=== PATIENT | male | born 1980 | race Caucasian/White ===

== ENCOUNTER 2021-09-13 01:25 | Day surgery (SDC) | payer OTHER, SELFPAY ==
[2021-09-04 13:35] VITALS: BMI 22.5
[2021-09-13 08:33] VITALS: BP 129/78; PULSE 49; RESP 18; TEMP 36; O2SAT 99; BMI 21.9
[2021-09-13] MEDS: LACTATED RINGERS 1,000 ML 150 ML IV CONT (08:40)
--- NOTE | 2021-09-13 08:44 | P.CONGI_ITS ---
Assessment and Plan Assessment and plan (1) Diverticulitis: Code(s): K57.92 - Diverticulitis of intestine, part unspecified, without perforation or abscess without bleeding Status: Acute Assessment and Plan: Diverticulitis has resolved. Plan is for patient remain on a high-fiber diet. Colonoscopy to assess for healing and exclude other pathology will be performed today. (2) LGI bleed: Code(s): K92.2 - Gastrointestinal hemorrhage, unspecified Status: Acute Assessment and Plan: Patient had episode of lower GI bleeding. This is subsequently resolved. Patient now on a high-fiber diet. Colonoscopy to evaluate this is to be performed today. GI Consult Note Consult date/time: 09/13/21 08:44 HPI: Nixon Campos is a 41 year old male Presents for colonoscopy. Patient had episode of lower GI bleeding associated with abdominal pain 2 months ago. It was felt to represent diverticulitis. He recovered after antibiotics. He has had no additional bleeding. He states abdominal pain is resolved. He presents today for follow-up colonoscopy to assess for healing and exclude other pathology. Patient's family history is noncontributory. Review of Systems Review of Systems: All systems reviewed & are unremarkable except as noted in HPI and below PMFSH Social History Social History (Updated 07/17/21 @ 10:43 by Nessa Packer MA) Smoking status: Never smoker Second hand tobacco smoke exposure: No Alcohol intake: current Drinks per week: 12 Alcohol use details: social Substance use: never Substance use type: former substance user Living arrangements: with family Gender identity (if verbalized by the patient): Male Spiritual care concerns: No Meds Home Medications and Allergies Home Medications Medication Instructions Recorded Confirmed Type No Home Medications 07/17/21 09/04/21 History Allergies Allergy/AdvReac Type Severity Reaction Status Date / Time No Known Allergies Allergy Mild Verified 09/13/21 08:32 Vital Signs Vital Signs - 24 hr 09/13/21 08:33 Temperature 96.8 F L Pulse Rate 49 L Respiratory Rate 18 Blood Pressure 129/78 Pulse Oximetry 99 Exam Narrative: Physical exam reveals patient to be alert. Vital signs stable. HEENT exam is unremarkable. Patient is anicteric. Lungs are clear to auscultation and percussion. Heart is without murmur or extra sounds. A bdominal exam bowel sounds are present soft nontender with no organomegaly. Digital external rectal exam is normal.
--- NOTE | 2021-09-13 08:56 | WPDANESEPPF ---
Anes - Initial Pre Proc Eval Procedure: Operation Date: 09/13/21 09:30 Proposed Procedures p Colonoscopy - Mau Vera MD Date/Time: 09/13/21 08:56 Surgeon: Mau Vera MD Pre Op Diagnosis: lower GI bleed, diverticulitis Patient Data Age: 41 Gender: M Height: 1.88 m Weight: 77.3 kg Last Vital Signs Temp 36.0 C L 09/13/21 08:33 Pulse 49 L 09/13/21 08:33 Resp 18 09/13/21 08:33 BP 129/78 09/13/21 08:33 Pulse Ox 99 09/13/21 08:33 Allergies Allergy/AdvReac Type Severity Reaction Status Date / Time No Known Allergies Allergy Mild Verified 09/13/21 08:32 Home Medications Medication Instructions Recorded Confirmed Type No Home Medications 07/17/21 09/04/21 History Patient hx anesthesia problems: none Family hx anesthesia problems: none Results Review: All pre-operative results and documents have been reviewed as part of the pre-operative evaluation. [facility] Past Medical History Medical History (Updated 09/13/21 @ 08:59 by Homer Mead MD) History of varicocele Social History Social History Smoking status: Never smoker Second hand tobacco smoke exposure: No Alcohol intake: current Drinks per week: 12 Alcohol use details: social Substance use: never Substance use type: former substance user Living arrangements: with family Gender identity (if verbalized by the patient): Male Spiritual care concerns: No Anes - Eval Final PreProcedure Day of Procedure 09/13/21 08:56 Patient weight: normal Heart: regular rate and rhythm Lungs: clear to auscultation Airway: Mallampati scale class II Neurological: alert and oriented Last oral intake: >/= 8 hours ASA classification: I Emergent: no Anesthetic plan: proceed Anesthesia type and monitoring: general GIVS and standard monitoring Results Review: All pre-operative results and documents have been reviewed as part of the pre-operative evaluation. Informed Consent: The patient's anesthetic plan and its attendant risks and benefits were discussed with the patient/family/POA. Questions were solicited and answers provided to the satisfaction of the patient/family/POA.
[2021-09-13] MEDS: SIMETHICONE ORAL SUSPENSION 20 MG/0.3 ML 30 ML BOTTLE 0.6 ML IRRIGATION (09:23)
[2021-09-13 09:30] VITALS: BP 110/61; PULSE 68; RESP 17; O2SAT 93
[2021-09-13 09:40] VITALS: BP 103/62; PULSE 53; RESP 18; O2SAT 96
[2021-09-13 09:50] VITALS: BP 126/68; PULSE 62; RESP 20; O2SAT 96
== END 2021-09-13 09:57 | disposition home or self-care (01) ==
PROVIDERS: PCP Family Medicine Adolescent Medicine; Visit Provider Internal Medicine Gastroenterology
PROC: 0DJD8ZZ Inspection of Lower Intestinal Tract, Via Natural or Artificial Opening Endoscopic (ICD-10-PCS; CPT 45378; principal; 2021-09-13 09:30)
DX: K92.1 Melena (principal); K64.8 Other hemorrhoids; K57.30 Diverticulosis of large intestine without perforation or abscess without bleeding; Z87.19 Personal history of other diseases of the digestive system
CPT/HCPCS: 45378; J2704; J7120

== ENCOUNTER 2023-08-07 09:35 | Emergency (ER) | payer OTHER, SELFPAY ==
[2023-08-07 09:47] VITALS: BP 121/68; PULSE 60; RESP 16; TEMP 36.6; O2SAT 97
--- NOTE | 2023-08-07 09:57 | ED.LOWEXIN ---
HPI - Extremity Injury (Lower) General Chief Complaint: Skin/Abscess/Foreign Body Stated Complaint: Left Leg Injury Time Seen by Provider: 08/07/23 09:51 Source: patient and RN notes reviewed Mode of arrival: ambulatory Limitations: no limitations History of Present Illness HPI Narrative: Patient presents today with a laceration to his left buttock. He fell approximately 30 minutes prior to arrival, onto an anchor bolt on the ground at work, cutting his pants and lacerating his skin. He is not up-to-date on his tetanus vaccine. He declines vaccine at this time. He did go home and shower prior to arrival. Related Data Home Medications Medication Instructions Recorded Confirmed escitalopram oxalate 10 mg tablet 10 mg PO DAILY 04/22/23 08/07/23 (Lexapro) multivitamin 1 tablet PO DAILY 04/22/23 08/07/23 Allergies Allergy/AdvReac Type Severity Reaction Status Date / Time No Known Allergies Allergy Mild Verified 08/07/23 09:43 Review of Systems Review of Systems: CONSTITUTIONAL: Denies body aches, fever, chills, or sweats. EYES: Denies visual changes, redness, or discharge. ENT: Denies rhinorrhea, congestion, sore throat, or otalgia. CARDIOVASCULAR: Denies chest pain, palpitations, or edema. RESPIRATORY: Denies cough or dyspnea. GASTROINTESTINAL: Denies abdominal pain, nausea, vomiting, or diarrhea. GENITOURINARY: Denies dysuria or hematuria. SKIN: + left buttock laceration MUSCULOSKELETAL: Denies back pain, joint pain, or myalgia. NEUROLOGIC: Denies headache, numbness, tingling, or weakness. PSYCH: Denies depression or anxiety. [facility] Past Medical History Medical History Anxiety BMI 21.0-21.9, adult Depression Diverticulitis Encounter to establish care History of varicocele Hx of diverticulitis of colon LGI bleed Screening for prostate cancer Family History Family History Grandparent Diabetes mellitus Social History Social History Smoking status: Never smoker Second hand tobacco smoke exposure: No Alcohol intake: current Drinks per week: 12 Alcohol use details: social Substance use: never Substance use type: former substance user Current Housing: Decline to Answer Concerned About Future Housing: Decline to Answer Difficulty Paying Gas/Electric Bills: Decline to Answer Difficulty Paying for Meds: Decline to Answer Currently Unemployed: Decline to Answer Education: Decline to Answer Difficulty w/ Childcare or Family Care: Decline to Answer Living arrangements: with family Occupation/Education: occupation Gender identity (if verbalized by the patient): Male Spiritual care concerns: No Comments At time of signature, I have reviewed and agree with nursing past medical, surgical, social and family history unless otherwise noted. Please see nursing chart for further information. There is no relevant family history pertinent to the presenting complaint Exam Narrative: GENERAL: Well-appearing, well-nourished, and in no acute distress. HEAD: Normocephalic, atraumatic. EYES: EOMI. No redness or drainage. Conjunctivae normal. ENT: Mucous membranes pink and moist. NECK: Normal AROM. CHEST: No respiratory distress. EXTREMITIES: Normal range of motion. No edema. SKIN: Warm, dry, no rash. Capillary refill normal. Normal skin turgor. 2.5 cm full-thickness linear laceration to the inner aspect of the left buttock, approximately 5 cm away from the rectum. NEURO: No focal deficits. Alert and oriented x3. Gait steady. PSYCH: Normal affect. No signs of depression or anxiety. Course Course Level of Care: Express Care Visit Vital Signs Vital signs: Vital Signs Temperature 97.8 F 08/07/23 09:47 Pulse Rate 60 08/07/23 09:47 Respiratory Rate 16 08/07/23 09:47 Blood
== END 2023-08-07 10:21 | disposition home or self-care (01) ==
PROVIDERS: Emergency Provider Nurse Practitioner; PCP Family Medicine Adolescent Medicine
DX: S31.821A Laceration without foreign body of left buttock, initial encounter (principal); W19.XXXA Unspecified fall, initial encounter; F41.9 Anxiety disorder, unspecified; F32.A Depression, unspecified
CPT/HCPCS: 12001; 99213; G0463

== ENCOUNTER 2023-08-20 10:56 | Emergency (ER) | payer OTHER, SELFPAY ==
[2023-08-20 11:04] VITALS: BP 133/69; PULSE 58; RESP 18; TEMP 36.3; O2SAT 99
--- NOTE | 2023-08-20 11:13 | ED.SKABFB ---
HPI - Skin/Abscess/Foreign Bdy General Chief complaint: Skin/Abscess/Foreign Body Stated complaint: Remove Stitches Time Seen by Provider: 08/20/23 11:09 Source: patient, RN notes reviewed and old records reviewed Mode of arrival: ambulatory Limitations: no limitations History of Present Illness HPI narrative: Patient presents today for suture removal. He had 3 sutures placed in his right buttock approximately 2 weeks ago. Denies any difficulties or indications of infection. Related Data Home Medications Medication Instructions Recorded Confirmed escitalopram oxalate 10 mg tablet 10 mg PO DAILY 04/22/23 08/20/23 (Lexapro) multivitamin 1 tablet PO DAILY 04/22/23 08/20/23 Allergies Allergy/AdvReac Type Severity Reaction Status Date / Time No Known Allergies Allergy Mild Verified 08/20/23 11:04 Review of Systems Review of Systems: CONSTITUTIONAL: Denies body aches, fever, chills, or sweats. EYES: Denies visual changes, redness, or discharge. ENT: Denies rhinorrhea, congestion, sore throat, or otalgia. CARDIOVASCULAR: Denies chest pain, palpitations, or edema. RESPIRATORY: Denies cough or dyspnea. GASTROINTESTINAL: Denies abdominal pain, nausea, vomiting, or diarrhea. GENITOURINARY: Denies dysuria or hematuria. SKIN: + sutures to right buttock MUSCULOSKELETAL: Denies back pain, joint pain, or myalgia. NEUROLOGIC: Denies headache, numbness, tingling, or weakness. PSYCH: Denies depression or anxiety. [facility] Past Medical History Medical History Anxiety BMI 21.0-21.9, adult Depression Diverticulitis Encounter to establish care History of varicocele Hx of diverticulitis of colon LGI bleed Screening for prostate cancer Family History Family History Grandparent Diabetes mellitus Social History Social History Smoking status: Never smoker Second hand tobacco smoke exposure: No Alcohol intake: current Drinks per week: 12 Alcohol use details: social Substance use: never Substance use type: former substance user Current Housing: Decline to Answer Concerned About Future Housing: Decline to Answer Difficulty Paying Gas/Electric Bills: Decline to Answer Difficulty Paying for Meds: Decline to Answer Currently Unemployed: Decline to Answer Education: Decline to Answer Difficulty w/ Childcare or Family Care: Decline to Answer Living arrangements: with family Occupation/Education: occupation Gender identity (if verbalized by the patient): Male Spiritual care concerns: No Comments At time of signature, I have reviewed and agree with nursing past medical, surgical, social and family history unless otherwise noted. Please see nursing chart for further information. There is no relevant family history pertinent to the presenting complaint Exam Narrative: GENERAL: Well-appearing, well-nourished, and in no acute distress. HEAD: Normocephalic, atraumatic. EYES: EOMI. No redness or drainage. Conjunctivae normal. ENT: Mucous membranes pink and moist. NECK: Normal AROM. CHEST: No respiratory distress. SKIN: Warm, dry, no rash. Capillary refill normal. Normal skin turgor. Three intact sutures overlying healing laceration to the right lower buttock. No signs of infection. NEURO: No focal deficits. Alert and oriented x3. Gait steady. PSYCH: Normal affect. No signs of depression or anxiety. Course Course Level of Care: Express Care Visit Vital Signs Vital signs: Vital Signs Temperature 97.4 F L 08/20/23 11:04 Pulse Rate 58 L 08/20/23 11:04 Respiratory Rate 18 08/20/23 11:04 Blood Pressure 133/69 08/20/23 11:04 Pulse Oximetry 99 08/20/23 11:04 Oxygen Delivery Room Air 08/20/23 11:04 Temperature 97.4 F L 08/20/23 11:04 Pulse Rate 58 L 08/20/23 11:04 Respir
== END 2023-08-20 11:17 | disposition home or self-care (01) ==
PROVIDERS: Emergency Provider Nurse Practitioner; PCP Nurse Practitioner Family
DX: S31.811D Laceration without foreign body of right buttock, subsequent encounter (principal); X58.XXXD Exposure to other specified factors, subsequent encounter; F41.9 Anxiety disorder, unspecified; F32.A Depression, unspecified
CPT/HCPCS: 99211; G0463